=== PATIENT | male | born 1960 | race Caucasian/White ===

== ENCOUNTER → 2020-04-26 | Day surgery (SDC) | payer OTHER ==
[~2020-04-26] MED LIST: ALLOPURINOL 10100 MG PO; AMITRIPTYLINE100 MG PO; ASCORBIC ACID500 MG PO; ASPIRIN EC81 MG PO; BACTROBAN NASAL1 GM TOP; CARDURA XL8 MG PO; CELEXA20 MG PO; CENTRUM ADULTS1 EACH PO; CLEOCIN300 MG PO; ELAVIL50 MG PO; GLIMEPIRIDE4 MG PO; GLUCOPHAGE500 MG PO; KLOR-CON M 1010 MEQ PO; LACTINEX1 EACH PO; LASIX40 MG PO; MIRALAX17 GM PO; NORCO 5-325 TA1 EACH PO; OXYCODONE HCL10 MG PO; PERCOCET 5-3251 EACH PO; PRINIVIL20 MG PO; STOOL SOFTENER100 M1 PO; TOPROL XL 25MG25 MG PO; VIBRAMYCIN100 MG PO; VICODIN 10/3251 EACH PO; VITAMIN B-121000 MC1 PO; VITAMIN D350 MC4 PO; ZINC50 M2 PO
== END | disposition home or self-care (01) ==
LOC: FAS 08:59
DX: Z12.11 Encounter for screening for malignant neoplasm of colon (principal); K59.03 Drug induced constipation; T40.2X5A Adverse effect of other opioids, initial encounter; E11.9 Type 2 diabetes mellitus without complications; G47.30 Sleep apnea, unspecified; I10 Essential (primary) hypertension; F10.10 Alcohol abuse, uncomplicated; M19.90 Unspecified osteoarthritis, unspecified site; F41.8 Other specified anxiety disorders; M10.9 Gout, unspecified; E78.00 Pure hypercholesterolemia, unspecified; I27.20 Pulmonary hypertension, unspecified; G25.81 Restless legs syndrome; E66.01 Morbid (severe) obesity due to excess calories; Z68.42 Body mass index [BMI] 45.0-49.9, adult; Z87.891 Personal history of nicotine dependence; Z79.82 Long term (current) use of aspirin; Z79.84 Long term (current) use of oral hypoglycemic drugs; Z79.899 Other long term (current) drug therapy
CPT/HCPCS: J2250; J2704; J7120

== ENCOUNTER 2020-09-04 12:10 | Emergency (ER) | payer OTHER ==
[~2020-09-04 12:10] MED LIST changes: -AMITRIPTYLINE100 MG PO; -BACTROBAN NASAL1 GM TOP; -CLEOCIN300 MG PO; -LACTINEX1 EACH PO; -NORCO 5-325 TA1 EACH PO; -VIBRAMYCIN100 MG PO
[2020-09-04 14:15] LABS: BASOPHIL 0.2 % (0-2); EOSINOPHIL 1.7 % (0-5); HCT 42.8 % (42.0-52.0); LYMPHOCYTE 2.2 % (15-48); MCH 30.1 pg (25.0-31.0); MCV 85.8 fL (78.0-100.0); MONOCYTE 4.1 % (0-12); MPV 9.4 fL (6.0-9.5); NEUTROPHIL 90.1 % (41-80); NRBC 0; PLT 199 K/uL (150-400); RBC 4.99 M/uL (4.70-6.00)
[2020-09-04 14:22] LABS: WBC 11.6 K/uL (4.0-10.5)
[2020-09-04 14:35] LABS: BILIRUBIN NEGATIVE (NEGATIVE); BLOOD NEGATIVE Ery/uL (NEGATIVE); CLARITY CLEAR (CLEAR); COLOR YELLOW (YELLOW); GLUCOSE (U) NORMAL (NORMAL); LEUKOCYTES NEGATIVE Leu/uL (NEGATIVE); NITRITE NEGATIVE (NEGATIVE); PROTEIN NEGATIVE (NEGATIVE); SPECIFIC GRAVITY 1.015 (1.001-1.030); UROBILINOGEN 0.2 mg/dL (0.2-1.0); pH 5.5 (5.0-9.0)
[2020-09-04 14:38] LABS: INR 1.14 (0.9-1.2); PROTHROMBIN TIME 13.9 SECONDS (11.4-13.6)
[2020-09-04 14:39] LABS: PTT 26.7 SECONDS (22.2-34.7)
[2020-09-04 14:44] LABS: ALBUMIN 3.7 g/dL (3.4-5.0); BILIRUBIN - TOTAL 0.8 mg/dL (0.2-1.0); C-REACTIVE PROTEIN 7.3 mg/dL (<=0.90); CREATININE 0.8 mg/dL (0.67-1.17); MAGNESIUM 1.8 mg/dL (1.8-2.4); POTASSIUM 3.9 mmol/L (3.5-5.1); TOTAL PROTEIN 7.7 g/dL (6.4-8.2)
[2020-09-04 14:53] LABS: IRON % SATURATION 19.2 %SAT (20-50)
[2020-09-04 15:52] LABS: LACTIC ACID 1.9 mmol/L (0.4-1.9)
[2020-09-04] MEDS ORDERED: BACTROBAN NASAL1 GM TOP (17:52)
[2020-09-04] MEDS ORDERED: NORCO 5-325 TA1 EACH PO (17:52)
[2020-09-04] MEDS ORDERED: CLEOCIN300 MG PO (18:09)
== END 2020-09-04 18:20 | disposition home or self-care (01) ==
LOC: FER 12:10
PROVIDERS: Emergency Medicine
DX: T63.331A Toxic effect of venom of brown recluse spider, accidental (unintentional), initial encounter (principal); L03.211 Cellulitis of face; L25.8 Unspecified contact dermatitis due to other agents; E11.9 Type 2 diabetes mellitus without complications; Y92.9 Unspecified place or not applicable
CPT/HCPCS: 36415; 70491; 80053; 81003; 82550; 83540; 83550; 83605; 83615; 83735; 84145; 84484; 85025; 85610; 85730; 86140; 87040; J2543; Q9967

== ENCOUNTER 2020-09-07 17:04 | Inpatient (IN) | payer OTHER ==
[~2020-09-07] VITALS: Ht 185.4 cm; Wt 161.1 kg
[~2020-09-07 17:04] MED LIST changes: +BACTROBAN NASAL1 GM TOP; +CLEOCIN300 MG PO; +NORCO 5-325 TA1 EACH PO
[2020-09-07 17:59] LABS: BASOPHIL 0.1 % (0-2); EOSINOPHIL 3.3 % (0-5); HCT 41.1 % (42.0-52.0); HGB 14.2 g/dl (13.2-18.0); LYMPHOCYTE 5.7 % (15-48); MCHC 34.5 g/dL (32.0-36.0); MCV 86.7 fL (78.0-100.0); MONOCYTE 4.2 % (0-12); MPV 9.2 fL (6.0-9.5); NRBC 0; PLT 222 K/uL (150-400); RBC 4.74 M/uL (4.70-6.00); RDW 12.1 % (11.5-14.0); WBC 13.8 K/uL (4.0-10.5)
[2020-09-07 18:12] LABS: ALBUMIN 3.1 g/dL (3.4-5.0); BILIRUBIN - TOTAL 1.3 mg/dL (0.2-1.0); BUN/CREAT RATIO (CALC) 12.8 RATIO; CREATININE 0.94 mg/dL (0.67-1.17); GLOBULIN (CALCULATION) 4.2 g/dL; POTASSIUM 3.7 mmol/L (3.5-5.1); TOTAL PROTEIN 7.3 g/dL (6.4-8.2)
[2020-09-07 18:56] LABS: CORONAVIRUS 2019 SARS-COV-2 NEGATIVE (NEGATIVE); INFLUENZA A NAA NEGATIVE (NEGATIVE)
[2020-09-07 20:26] LABS: LACTIC ACID 2.6 mmol/L (0.4-1.9)
[2020-09-07] MEDS ORDERED: AMITRIPTYLINE100 MG PO (22:36)
[2020-09-07] MEDS ORDERED: ALLOPURINOL 10100 MG PO (22:41)
[2020-09-08 04:05] LABS: HCT 38.7 % (42.0-52.0); HGB 13.5 g/dl (13.2-18.0); MCH 29.9 pg (25.0-31.0); MCHC 34.9 g/dL (32.0-36.0); MCV 85.8 fL (78.0-100.0); MPV 9.7 fL (6.0-9.5); RBC 4.51 M/uL (4.70-6.00); RDW 12.2 % (11.5-14.0)
[2020-09-08 04:24] LABS: BUN/CREAT RATIO (CALC) 16.2 RATIO; CREATININE 0.8 mg/dL (0.67-1.17); POTASSIUM 3.7 mmol/L (3.5-5.1)
[2020-09-09 06:08] LABS: BASOPHIL 0.3 % (0-2); EOSINOPHIL 4.1 % (0-5); HCT 38.9 % (42.0-52.0); HGB 13.8 g/dl (13.2-18.0); LYMPHOCYTE 9.8 % (15-48); MCH 30.7 pg (25.0-31.0); MCHC 35.5 g/dL (32.0-36.0); MCV 86.6 fL (78.0-100.0); MONOCYTE 4.3 % (0-12); MPV 9.5 fL (6.0-9.5); NEUTROPHIL 80.6 % (41-80); NRBC 0; PLT 217 K/uL (150-400); RBC 4.49 M/uL (4.70-6.00); RDW 12.4 % (11.5-14.0); WBC 20.7 K/uL (4.0-10.5)
[2020-09-09 06:26] LABS: ALBUMIN 2.9 g/dL (3.4-5.0); BILIRUBIN - TOTAL 0.4 mg/dL (0.2-1.0); BUN/CREAT RATIO (CALC) 21.9 RATIO; CREATININE 0.73 mg/dL (0.67-1.17); GLOBULIN (CALCULATION) 3.9 g/dL; POTASSIUM 3.2 mmol/L (3.5-5.1); TOTAL PROTEIN 6.8 g/dL (6.4-8.2)
[2020-09-09 15:08] LABS: LYME IGG/IGM AB <0.91 ISR (0.00-0.90)
[2020-09-10 05:55] LABS: HCT 37.7 % (42.0-52.0); MCH 30.4 pg (25.0-31.0); MCHC 34.5 g/dL (32.0-36.0); MCV 88.1 fL (78.0-100.0); MPV 9.1 fL (6.0-9.5); RBC 4.28 M/uL (4.70-6.00); RDW 12.7 % (11.5-14.0); WBC 15.1 K/uL (4.0-10.5)
[2020-09-10 07:09] LABS: BUN/CREAT RATIO (CALC) 18.7 RATIO; CREATININE 0.91 mg/dL (0.67-1.17); POTASSIUM 3.4 mmol/L (3.5-5.1)
[2020-09-10] MEDS ORDERED: VIBRAMYCIN100 MG PO (12:18)
[2020-09-10] MEDS ORDERED: LACTINEX1 EACH PO (12:18)
[2020-09-11 15:09] LABS: E. CHAFFEENSIS (HME) IGG TITER Negative (Neg:<1:64); E. CHAFFEENSIS (HME) IGM TITER Negative (Neg:<1:20); HGE IGG TITER Negative (Neg:<1:64); HGE IGM TITER Negative (Neg:<1:20)
== END 2020-09-10 14:24 | disposition home or self-care (01) | DRG 872 ==
LOC: FER 17:04 → FMS 20:59
PROVIDERS: Hospitalist; Nurse Practitioner Family; ADMIT Allergy & Immunology Allergy
DX: A41.9 Sepsis, unspecified organism (principal); A77.0 Spotted fever due to Rickettsia rickettsii; Z68.42 Body mass index [BMI] 45.0-49.9, adult; I10 Essential (primary) hypertension; E11.9 Type 2 diabetes mellitus without complications; Z20.822 Contact with and (suspected) exposure to COVID-19; E66.9 Obesity, unspecified; K21.9 Gastro-esophageal reflux disease without esophagitis; M10.9 Gout, unspecified; E87.6 Hypokalemia; I37.0 Nonrheumatic pulmonary valve stenosis; Z98.890 Other specified postprocedural states; Z87.891 Personal history of nicotine dependence; Z79.84 Long term (current) use of oral hypoglycemic drugs; Z79.899 Other long term (current) drug therapy
CPT/HCPCS: 36415; 80048; 80053; 82550; 83605; 84145; 85025; 86618; 86666; 86757; 86790; 87040; 87880; J1200; J1650; J2405; J2930; J7030; J7050; U0002

== ENCOUNTER 2021-01-18 11:18 | Emergency (ER) | payer OTHER ==
[~2021-01-18 11:18] MED LIST changes: +AMITRIPTYLINE100 MG PO; +LACTINEX1 EACH PO; +VIBRAMYCIN100 MG PO
== END 2021-01-18 12:41 | disposition home or self-care (01) ==
LOC: FER 11:18
DX: S81.812A Laceration without foreign body, left lower leg, initial encounter (principal); I10 Essential (primary) hypertension; E11.9 Type 2 diabetes mellitus without complications; Z88.1 Allergy status to other antibiotic agents; W22.09XA Striking against other stationary object, initial encounter; Y92.009 Unspecified place in unspecified non-institutional (private) residence as the place of occurrence of the external cause
CPT/HCPCS: 73560